=== PATIENT | male | born 1940 | race Caucasian/White ===

== ENCOUNTER 2016-08-27 16:55 | Emergency (ER) | payer MEDICARE, OTHER ==
[2016-08-27 17:19] LABS: #Basophils 0.1 thou/uL (0.0-0.2); #Eosinphils 0.1 thou/uL (0.0-0.7); #Lymphocytes 1.1 thou/uL (1.20-3.40); #Monocytes 0.6 thou/uL (0.11-0.59); #Neutrophils 7.2 thou/uL (1.40-6.50); %Basophils 0.6 % (0.0-1.0); %Monocytes 6.7 % (0.0-10.0); Hematocrit 45.4 % (42.0-52.0); Mean Platelet Volume 5.7 fL (7.4-10.4); Red Blood Cell (RBC) Count 4.88 mill/uL (4.70-6.10)
[2016-08-27 17:37] LABS: ALT (SGPT) 11 U/L (0-55); AST (SGOT) 15 U/L (5-34); Alkaline Phosphatase 66 U/L (40-150); Anion Gap 10 mmol/L (10-20); BUN (Urea Nitrogen) 20 mg/dL (8.4-25.7); Bilirubin, Total 0.3 mg/dL (0.2-1.2); CK (CPK) 49 U/L (30-200); Calc. Creatinine Clearance 0 mL/min (70-130); Calcium 8.9 mg/dL (7.8-10.44); Carbon Dioxide 28 mmol/L (23-31); Chloride 101 mmol/L (98-107); Estimated GFR-MDRD 65; Protein, Total 6.8 g/dL (5.8-8.1)
[2016-08-27 17:44] LABS: Troponin I Less than 0.010 ng/mL (< 0.028)
[2016-08-27 20:57] LABS: Troponin I Less than 0.010 ng/mL (< 0.028)
--- NOTE | 2016-08-27 21:28 | PICIS ---
[facility] EMERGENCY RECORD TRIAGE (TueAug 27, 2016 16:58 ERUI) TRIAGE NOTES: BROUGHT BY EMS FROM DAUGHTERS HOUSE, PER PT HAD A SYNCOPAL EPISODE, AND HAD WHEN FOR EMS. (TueAug 27, 2016 16:58 ERUI) PATIENT: AGE: 76, GENDER: male, : Sat 1940, TIME OF GREET: TueAug 27, 2016 16:56, PREFERRED LANGUAGE: Armenian, ETHNICITY: Not or , ECODE BILLING MAP: [facility] ER, KG WEIGHT: 86.18, , , PERSON ID: [id number], PCP: OUT STATE. (TueAug 27, 2016 16:58 ERUI) NAME: Avi Álvarez, Zip Code: [address], PHONE: , PAYMENT: [place]. (17:42) COMPLAINT: Syncope. (TueAug 27, 2016 16:58 ERUI) ADMISSION: URGENCY: 2 Emergent, ADMISSION SOURCE: Home, TRANSPORT: AMBULANCE - [facility], BED: TRIAGE. (TueAug 27, 2016 16:58 ERUI) ASSESSMENT: Assessment: PT A/OX4, NO COMPLAINTS, NO CP NO SOB. PER PT WAS OUTSIDE, CAME IN BECAME PALE DIAPHORETIC, AND HAD A NEAR SYNCOPAL EPISODE, PER EMS WHEN THEY PICKED HIM UP, HE HAD A SYNCOPAL EPISODE, LASTED ABOUT 3 SEC, PER EMS, PT HAD A BLANK STARE AND RIGHT ARM STARTED TO SHAKE, AND THEN HAD A SYNCOPAL EPISODE. (16:59 ERUI) PAIN: No complaint of pain. (16:58 ERUI) SIRS SCORING: Heart Rate 55-109 (0), Temp range 96.8-101.1 (0), respiratory rate 12-24 (0), Mental Status altered: no (0). (17:15 ERUI) TRIAGE SCREENING: Patient denies suicidal ideation, Patient denies presence of domestic violence. (17:15 ERUI) TREATMENTS IN PROGRESS: Treatments given Prehospital: NONE. (17:15 ERUI) PROVIDERS: TRIAGE NURSE: Charisse Lyle RN. (TueAug 27, 2016 16:58 ERUI) KNOWN ALLERGIES Shellfish CURRENT MEDICATIONS busPIRone: TABLET : Strength - 10 mg : ORAL Patient Dose: 1 tab(s) Oral. (17:02 ERUI) lisinopril: TABLET : Strength - 10 mg : ORAL Patient Dose: 1 tab(s) Oral once a day. (17:03 ERUI) lovastatin: TABLET : Strength - 20 mg : ORAL Patient Dose: 1 tab(s) Oral once a day. (17:03 ERUI) tamsulosin: CAPSULE, EXT RELEASE 24 HR : Strength - 0.4 mg : ORAL Patient Dose: 1 tab(s) Oral once a day. (17:04 ERUI) sertraline: &a-1R&a+25V*p+0X*t1550L*c202B*c15G*c2P*p-0X&a-25V&a+1R Name: Avi Álvarez : 1940 M76 MedRec: [id number] AcctNum: [id number] Prepared: Rc Aug 31, 2016 09:21 by Interface Page 1 of 12 pMD [facility] EMERGENCY RECORD TABLET : Strength - 100 mg : ORAL Patient Dose: 1 tab(s) Oral once a day. (17:04 ERUI) allopurinol: TABLET : Strength - 300 mg : ORAL Patient Dose: 1 tab(s) Oral once a day. (17:05 ERUI) aspirin: TABLET : Strength - 81 mg : ORAL Patient Dose: 1 tab(s) Oral once a day. (17:05 ERUI) hydrOXYzine pamoate: CAPSULE : Strength - 25 mg : ORAL Patient Dose: 1 tab(s) Oral 2 times a day. (17:09 ERUI) VITAL SIGNS VITAL SIGNS: BP: 102/57, Pulse: 64, Resp: 20 (Non-Labored), Pain: 0, O2 sat: 97 on Room Air, Time: 08/27/2016 17:00. (17:00 LGIB) Temp: 97.8 (Oral), Time: 08/27/2016 17:10. (17:10 LGIB) BP: 96/40, Pulse: 60, Resp: 20, Pain: 0, O2 sat: 97 on Room Air, Time: 08/27/2016 17:21. (17:21 ERUI) BP: 104/41, Pulse: 63, Resp: 20, Pain: 0, O2 sat: 96 on Room Air, Time: 08/27/2016 18:15. (18:15 ERUI) BP: 105/46, Pulse: 66, Resp: 22, Pain: 0, O2 sat: 95 on ra, Time: 08/27/2016 19:03. (19:03 BMAD) BP: 116/47, Pulse: 70, Resp: 20, Pain: 0, O2 sat: 97 on Room Air, Time: 08/27/2016 20:09. (20:09 BMAD) NURSING ASSESSMENT: FALL RISK (17:20 ERUI) FALL RISK: Fall risk assessment findings include: no history of falls (0), No bed rest greater than 2 days (0), No use of level of consciousness altering agents with mentation or cognitive changes (0), Change in blood pressure (1), No sensory deficits (0), No impaired mobility (0), No neurologic diagnosis (0), No elimination problems (0), No confusion (0), Total score 1, Notes: PT DID HAVE A SYNCOPAL EPISODE X 2 PRIOR TO ARRIVAL. HENDRICH II FALL RISK: Hendrich II Fall Risk assessment findings include patient not confused, disoriented or impulsive, not symptomatic or depressed, no altered elimination, no dizziness or vertigo, male(1), no antiepileptics (anticonvulsants) administered, no Benzodiazepines administered, Total score 1. NURSING ASSESSMENT: NEURO (17:06 ERUI) GCS: (6) Obeying command:, (5) Orientated:, (4) Spontaneous eye opening. NIHSS: CVA assessment findings: Level of consciousness: alert, keenly responsive (0), Questions: answers both questions correctly (0), Commands: performs both tasks correctly (0), Best gaze: normal (0), Visual: no visual loss (0), Facial palsy: normal symmetrical movement (0), Motor Left Arm: no drift, arm stays 90/45 degrees for full 10 seconds (0), Motor Right Arm: no drift, arm stays 90/45 degrees for full 10 seconds (0), Motor left leg: no drift, leg stays at 30 degrees for full five seconds (0), Motor right leg: no drift, &a-1R&a+25V*p+0X*g8869P*c202B*c15G*c2P*p-0X&a-25V&a+1R Name: Avi Álvarez : 1940 M76 MedRec: [id number] AcctNum: [id number] Prepared: TueAug 31, 2016 09:21 by Interface Page 2 of 12 pMD [facility] EMERGENCY RECORD leg stays at 30 degrees for full five seconds (0), Limb ataxia absent (0), Sensory: normal, no sensory loss (0), Best language: no aphasia; normal (0), Dysarthria: normal (0), Extinction and Inattention: normal (0), Total score 0. CONSTITUTIONAL: Patient arrives, via [facility], History obtained from patient, Patient appears comfortable, Patient cooperative, Patient alert, Oriented to person, place and time, Skin warm, Skin dry, Skin normal in color, Patient complains of SNYCOPAL EPISODE X 2. PAIN: Patient rates pain as 0 out of 10. 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 SAFETY: Side rails up, Cart/Stretcher in lowest position, Family at bedside, Call light within reach, Hospital ID band on. NURSING ASSESSMENT: SKIN (17:19 ERUI) SKIN: Skin assessment findings include skin warm, Skin dry, Skin normal in color, Notes: PT HAS A HEALING, SCAB ON THE INSIDE OF HIS LEFT FOREARM, NO OTHER SKIN BREAKDOWN. NURSING PROCEDURE: BEDSIDE TESTING (17:09 LGIB) GLUCOSE: Capillary blood sample, Result (mg/dl) 105. NURSING PROCEDURE: BRADLEY LINEBACKER CREWMEMBER (17:17 ERUI) PATIENT IDENTIFIER: Patient actively involved in identification process, Patient's identity verified by patient stating name. BRADLEY LINEBACKER CREWMEMBER: Cardiac monitoring indicated for complaint of chest pain, Cardiac monitoring indicated for SYNCOPAL EPISODE X 2, Patient placed on security monitor, Heart rate: 64, showing normal sinus rhythm, Patient placed on non-invasive blood pressure monitor, with disposable blood pressure cuff applied, Patient placed on continuous pulse oximetry, Adult/pediatric oxisensor applied. SAFETY: Side rails up, Cart/Stretcher in lowest position, Family at bedside, Call light within reach, Hospital ID band on. NURSING PROCEDURE: DISCHARGE NOTE (21:05 BMAD) DISCHARGE: Patient discharged to home, ambulating without assistance, family driving, accompanied by //partner, Summary of Care printed/ provided, Patient requested and was provided an electronic copy of Discharge Instructions, Transition record given to patient, Discharge instructions given to patient, Simple or moderate discharge teaching performed, by ANURAG CRAFT MD, Above &a-1R&a+25V*p+0X*l5077I*c202B*c15G*c2P*p-0X&a-25V&a+1R Name: Avi Álvarez : 1940 M76 MedRec: [id number] AcctNum: [id number] Prepared: TueAug 31, 2016 09:21 by Interface Page 3 of 12 pMD [facility] EMERGENCY RECORD person(s) verbalized understanding of discharge instructions and follow-up care, Patient discharged by, Dr. CRAFT. BELONGINGS: Belongings and valuables with patient at time of discharge include:, Belongings remain with patient, Valuables remain with patient. NURSING PROCEDURE: EKG CHART (17:01 LGIB) EK lead EKG performed on the left chest, done by CROW ROMERO. FOLLOW-UP: After procedure, EKG for interpretation given to Dr. CRAFT. NURSING PROCEDURE: IV PATIENT IDENITIFIER: Patient actively involved in identification process, Patient's identity verified by patient stating name, Patient's identity verified by patient stating date. (17:27 ERUI) IV SITE 1: IV established, to the left antecubital, using an 18 gauge catheter, Saline lock established, Notes: SALINE BY EMS PRIOR TO ARRIVAL TO ED. (17:27 ERUI) FOLLOW-UP SITE 1: After procedure, no drainage at IV site, After procedure, no swelling at IV site, After procedure, no redness at IV site, IV discontinued, due to patient being discharged, catheter intact, Notes: iv removed. 2x2 applied. wrapped in coban. (21:03 BMAD) SAFETY: Side rails up, Cart/Stretcher in lowest position, Family at bedside, Call light within reach, Hospital ID band on. (17:27 ERUI) NURSING PROCEDURE: NURSE NOTES NURSES NOTES: Notes: RAJNI WITH LAB, AT BEDSIDE DRAWING LABS. (17:15 ERUI) Notes: PT STATES WAS OUT OF HIS MEDICATIONS FOR OVER A MONTH, AND TODAY HE STARTED HIS MEDICATIONS. (17:16 ERUI) Assistance offered to patient, Ice chips given to patient, Beverage given to patient, Food or beverage offered to family members, Report received, Given to: Anurag MARIA, Provided opportunity to answer questions, from: Margot MARIA, for shift change, Provided opportunity to answer questions. (19:03 BMAD) Notes: Pt ambulating without assistance. pt denying signs/symptoms of orthostatic hypotension. (19:43 BMAD) VITAL SIGNS: BP: 105, / 46, Pulse: 66, Resp: 22, Pain: 0, O2 sat: 95, on: ra. (19:03 BMAD) NURSING PROCEDURE: ORTHOSTATIC VITAL SIGNS (17:31 LGIB) ORTHOSTATIC VITAL SIGNS: Lying:, Blood pressure: 99/40, Pulse: 64, No dizziness, Sitting:, Blood pressure: 97/45, Pulse: 66, No dizziness with position change, Standing:, Blood pressure: 91/36, Pulse: 70, No dizziness with position change. FOLLOW-UP: After procedure, results given to Dr. CRAFT. &a-1R&a+25V*p+0X*n9158Z*c202B*c15G*c2P*p-0X&a-25V&a+1R Name: Avi Álvarez Henry : 1940 M76 MedRec: [id number] AcctNum: [id number] Prepared: TueAug 31, 2016 09:21 by Interface Page 4 of 12 pMD [facility] EMERGENCY RECORD ORDER DETAILS Order Name: BLOOD GLUCOSE MONITOR, Status: Done, Time: 17:09 08/27/2016, User: LGIB, - Ordered for: DO Craft Matthew, - Entered by: DO Craft Matthew - TueAug 27, 2016 16:59, - Quantity: 1, Order Name: BRADLEY LINEBACKER CREWMEMBER ED, Status: Done, Time: 17:12 08/27/2016, User: LGIB, - Ordered for: Venancio, , Ok, - Entered by: DO Craft Matthew - TueAug 27, 2016 16:59, - Quantity: 1, Order Name: Cardiac Profile w/CKMB & Troponin - I, Status: Active, Time: 16:59 08/27/2016, User: MBRI, - Ordered for: DO Craft Matthew, - Entered by: DO Craft Matthew - TueAug 27, 2016 16:59, - Quantity: 1, Order Name: CBC with Differential, Status: Active, Time: 16:59 08/27/2016, User: MBRI, - Ordered for: DO Craft Matthew, - Entered by: DO Craft Matthew - TueAug 27, 2016 16:59, - Quantity: 1, Order Name: CK (CPK), Status: Active, Time: 16:59 08/27/2016, User: MBRI, - Ordered for: DO Craft Matthew, - Entered by: DO Craft Matthew - TueAug 27, 2016 16:59, - Quantity: 1, Order Name: Comprehensive Metabolic Panel, Status: Active, Time: 16:59 08/27/2016, User: MBRI, - Ordered for: DO Craft Matthew, - Entered by: DO Craft Matthew - TueAug 27, 2016 16:59, - Quantity: 1, Order Name: EKG 12 Lead in Emergency Room, Status: Active, Time: 16:59 08/27/2016, User: MBRI, - Ordered for: DO Craft Matthew, - Entered by: DO Craft Matthew - TueAug 27, 2016 16:59, - Quantity: 1, Order Name: ERRT Pulse Oximeter ER, Status: Active, Time: 16:59 08/27/2016, User: MBRI, - Ordered for: DO Craft Matthew, - Entered by: DO Craft Matthew - TueAug 27, 2016 16:59, - Quantity: 1, Order Name: ORTHOSTATIC VITAL SIGNS, Status: Done, Time: 17:31 08/27/2016, User: LEONEL, - Ordered for: DO Craft Matthew, - Entered by: DO Craft Matthew - TueAug 27, 2016 17:24, - Quantity: 1, Order Name: SALINE LOCK, Status: Done, Time: 17:12 08/27/2016, User: LEONEL, - Ordered for: DO Craft Matthew, &a-1R&a+25V*p+0X*u6668I*c202B*c15G*c2P*p-0X&a-25V&a+1R Name: Avi Álvarez : 1940 M76 MedRec: [id number] AcctNum: [id number] Prepared: TueAug 31, 2016 09:21 by Interface Page 5 of 12 D [facility] EMERGENCY RECORD - Entered by: DO Craft Matthew - TueAug 27, 2016 16:59, - Quantity: 1, Order Name: Troponin - I, Status: Active, Time: 20:27 08/27/2016, User: SEAN, - Ordered for: DO Craft Matthew, - Entered by: CROW Becker Blake - TueAug 27, 2016 20:27, - Quantity: 1, Order Name: Urinalysis w/ Rflx Microscopic, Status: Active, Time: 16:59 08/27/2016, User: ASHLEY, - Ordered for: DO Craft Matthew, - Entered by: DO Craft Matthew - TueAug 27, 2016 16:59, - Quantity: 1, Order Name: XR Chest 1 View Portable, Status: Active, Time: 18:22 08/27/2016, User: ASHLEY, - Ordered for: DO Craft Matthew, - Entered by: DO Craft Matthew - TueAug 27, 2016 18:22, - Quantity: 1. MEDICATION ADMINISTRATION SUMMARY Drug Name: *sodium chloride 0.9 % intravenous, Dose Ordered: 500 mL, Route: IV Fluid Infusion, Status: Given, Time: 17:54 08/27/2016, Drug Name: *sodium chloride 0.9 % intravenous, Dose Ordered: 500 mL, Route: IV Fluid Infusion, Status: Given, Time: 17:26 08/27/2016, *Additional information available in notes, Detailed record available in Medication Service section. MEDICATION SERVICE sodium chloride 0.9 % intravenous: Order: sodium chloride 0.9 % intravenous (0.9 % sodium chloride) - Dose: 500 mL : IV Fluid Infusion Schedule: Bolus Notes: (Bolus) Ordered by: Ok Craft DO Entered by: Ok Craft DO TueAug 27, 2016 17:23 , Acknowledged by: Charisse Lyle RN TueAug 27, 2016 17:26 Documented as given by: Charisse Lyle RN TueAug 27, 2016 17:26 Patient, Medication, Dose, Route and Time verified prior to administration. Amount given: 500ML, IV SITE #1 IV fluids established for hydration, IV SITE #1 1st bag hung, amount 500ml hung, via primary tubing, via gravity tubing, Awake and alert- acceptable, Catheter placement confirmed via flush prior to administration, IV site without signs or symptoms of infiltration during medication administration, No swelling during administration, No drainage during administration, IV flushed after administration, Correct patient, time, route, dose and medication confirmed prior to administration, Patient advised of actions and side-effects prior to administration, Allergies confirmed and medications reviewed prior to administration, Patient in position of comfort, Side rails up, Cart in lowest position, Family at &a-1R&a+25V*p+0X*h7717U*c202B*c15G*c2P*p-0X&a-25V&a+1R Name: Avi Álvarez : 1940 M76 MedRec: [id number] AcctNum: [id number] Prepared: TueAug 31, 2016 09:21 by Interface Page 6 of 12 pMD [facility] EMERGENCY RECORD bedside. : Follow Up : Response assessment performed, No signs or symptoms of allergic reaction noted, _IV SITE #1:_, Medication infusion discontinued, on TueAug 27, 2016 17:51, 25 minutes, ., Total amount infused: 500ML. (17:50 ERUI) sodium chloride 0.9 % intravenous: Order: sodium chloride 0.9 % intravenous (0.9 % sodium chloride) - Dose: 500 mL : IV Fluid Infusion Schedule: Bolus Notes: (Bolus) Ordered by: Ok Craft DO Entered by: Charisse Lyle RN TueAug 27, 2016 17:53 , Acknowledged by: Charisse Lyle RN TueAug 27, 2016 17:53 Documented as given by: Charisse Lyle RN TueAug 27, 2016 17:54 Patient, Medication, Dose, Route and Time verified prior to administration. Amount given: 500ML/HR, IV SITE #1 IV fluids established for hydration, IV SITE #1 1st bag hung, amount 500ml hung, via primary tubing, via gravity tubing, Awake and alert- acceptable, Catheter placement confirmed via flush prior to administration, IV site without signs or symptoms of infiltration during medication administration, No swelling during administration, No drainage during administration, IV flushed after administration, Correct patient, time, route, dose and medication confirmed prior to administration, Patient advised of actions and side-effects prior to administration, Allergies confirmed and medications reviewed prior to administration, Patient in position of comfort, Side rails up, Cart in lowest position, Family at bedside, Co-signed by: Ok Craft DO TueAug 27, 2016 18:04. : Follow Up : _IV SITE #1:_, IV fluid infusion discontinued, on TueAug 27, 2016 18:30, 40 minutes, ., Total amount infused: 500ml. (18:30 BMAD) HPI SYNCOPE (17:55 MBRI) CHIEF COMPLAINT: Patient presents for evaluation of syncope. HISTORIAN: History provided by patient, History provided by patient's family, Additional history obtained from EMS. LOCATION: Symptoms are generalized. QUALITY: Symptom quality described as blackout, Denies lightheadedness, Denies vertigo, Denies dizziness, Unable to describe the quality of the pain. SEVERITY: Maximum severity of symptoms mild, Currently symptoms are mild. TIME COURSE: Sudden onset of symptoms, Symptoms have resolved, Symptoms are intermittent, Pt was sitting in his garage when he got up and walked a short distance to the kitchen. He sat down and then passed out for a brief episode <30 sec and recovered spontaneously without residual effects. EMS was called and he had another episode in the ambulance that last again a short duration with immediate recovery. He was on the monitor and no &a-1R&a+25V*p+0X*q1287C*c202B*c15G*c2P*p-0X&a-25V&a+1R Name: Avi Álvarez : 1940 M76 MedRec: [id number] AcctNum: [id number] Prepared: TueAug 31, 2016 09:21 by Interface Page 7 of 12 pMD [facility] EMERGENCY RECORD arrhythmia noted. He did have low blood pressure and bradycardia during this spell but that improved by his ED arrival. He noted that today he took all of his medications around 11am, none of which he had taken in over a month. Of noted this includes Tamsulosin and Lisinopril along with Zoloft and Buspirone. ASSOCIATED WITH: No associated abdominal pain, No associated back pain, No associated change in speech, No associated chest pain, No associated diarrhea, No associated diaphoresis, No associated fall, No associated focal deficit, No associated GI Bleed, Associated with headache, currently resolved, No associated pleuritic chest pain, No associated recent surgery, Associated with taoism of normal mental status, immediate, No associated shortness of breath, No associated seizures, No associated tachycardia, No associated vomiting. EXACERBATED BY: Patient's condition exacerbated by nothing. RELIEVED BY: Patient's condition relieved by rest, Patient's condition relieved spontaneously, Patient's condition relieved by time. RISK FACTORS MALE: Abdominal aortic aneurysm risk factors, include age over 40 years, No subarachnoid hemorrhage risk factors, Thoracic aortic dissection risk factors, include hypertension, Coronary artery disease risk factors, include high cholesterol, include hypertension, No pulmonary embolism risk factors. WELLS CRITERIA FOR PE: No clinical signs and symptoms of a DVT (0), Patient does not have, or is likely to not have, a primary diagnosis of PE (0), Patient's heart rate is less than 100 (0), Patient has no history of immobilization within 3 days, nor any surgical history within the past 4 weeks (0), Patient has not had an objectively diagnosed PE or DVT previously (0), Patient does not have hemoptysis (0), Patient has not had treatment for malignancy within the last 6 months, nor palliative (0), Total 0. ROS CONSTITUTIONAL: Negative constitutional review of systems, Historian denies chills, denies fever. (17:45 MBRI) EYES: Negative eye review of systems. (17:45 MBRI) ENT: Historian denies rhinorrhea, denies sore throat. (17:45 MBRI) CARDIOVASCULAR: Historian denies chest pain, no radiation, Historian denies dyspnea on exertion, denies edema, denies orthopnea, denies paroxysmal nocturnal dyspnea, reports syncope, denies palpitations. (17:45 MBRI) RESPIRATORY: Historian denies cough, denies shortness of breath. (17:45 MBRI) GI: Negative gastrointestinal review of systems, Historian denies abdominal pain, denies diarrhea, denies nausea, denies vomiting. (17:45 MBRI) GENITOURINARY MALE: Negative genitourinary review of systems. (17:45 MBRI) MUSCULOSKELETAL: Historian denies injury, Denies any &a-1R&a+25V*p+0X*v0017C*c202B*c15G*c2P*p-0X&a-25V&a+1R Name: Avi Álvarez : 1940 M76 MedRec: [id number] AcctNum: [id number] Prepared: Rc Aug 31, 2016 09:21 by Interface Page 8 of 12 pMD [facility] EMERGENCY RECORD musculoskeletal pain. (17:45 MBRI) SKIN: Negative skin review of systems, Historian denies skin changes. (17:45 MBRI) NEUROLOGIC: Negative neurologic review of systems, Historian denies focal weakness, denies sensory changes. (17:45 MBRI) HEMO/LYMPHATIC: Normal hematologic/lymphatic system review. (17:46 MBRI) PAST MEDICAL HISTORY (17:15 ERUI) MEDICAL HISTORY: Notes: ENLARGE PROSTATE, INSOMNIA,, Flu vaccine up to date, Tetanus immunization up to date, Pneumococcal vaccine not up to date, Past medical history includes history of hyperlipidemia, history of hypertension, musculoskeletal disorder. gout. MALE SURGICAL HISTORY: KNOTS ON ARMS AND LEGS REMOVED. CATARACTS RAMESH,. PSYCHIATRIC HISTORY: Psychiatric history includes, anxiety, depression. SOCIAL HISTORY: Patient denies alcohol use, Patient denies drug use, Patient currently uses tobacco, smokes cigarettes, daily, Patient smokes 1/2 packs per day. PHYSICAL EXAM (17:45 MBRI) CONSTITUTIONAL: Vital Signs Reviewed, Nursing notes reviewed. HEAD: Head exam included findings of head atraumatic, normocephalic. EYES: Eye exam included findings of eyelids normal to inspection, Pupils equally round and reactive to light, Extraocular muscles intact. ENT: Ear exam normal, Nose exam normal, Pharynx exam normal, not injected. NECK: Neck exam normal, Neck exam included findings of normal range of motion, Trachea midline. RESPIRATORY CHEST: Respiratory exam included findings of no respiratory distress, Breath sounds clear, No wheezing, No rales, No rhonchi. CARDIOVASCULAR: Cardiovascular exam included findings of heart rate regular rate and rhythm, Heart sounds normal, Carotids normal. ABDOMEN MALE: Abdominal exam included findings of abdomen nontender, Bowel sounds normal, no distension, no peritoneal signs, no rigidity, no guarding, no rebound. BACK: Back exam included findings of normal inspection, no tenderness. UPPER EXTREMITY: Upper extremity exam included findings of inspection normal, Range of motion normal, Motor strength normal, Radial pulse normal, no cyanosis, no clubbing, no edema. LOWER EXTREMITY: Lower extremity exam included findings of inspection normal, Range of motion normal, Motor strength normal, Pedal pulse normal, no cyanosis, no clubbing, no edema. &a-1R&a+25V*p+0X*b9327I*c202B*c15G*c2P*p-0X&a-25V&a+1R Name: Avi Álvarez : 1940 M76 MedRec: [id number] AcctNum: [id number] Prepared: TueAug 31, 2016 09:21 by Interface Page 9 of 12 pMD [facility] EMERGENCY RECORD NEURO: [place] coma scale 15, Neuro exam findings include patient oriented to person, place and time, Speech normal, Gait normal, Memory normal, Cranial nerves intact, Deep tendon reflexes normal, no focal motor deficits, no focal sensory deficits, no cerebellar deficits, no nystagmus. SKIN: Skin exam included findings of skin warm, dry, and normal in color. EVENTS TRANSFER: Triage to Emergency Triage. (TueAug 27, 2016 16:58 ERUI) Emergency Triage to Emergency Room -04. (16:58 ERUI) Removed from Emergency Emergency Room -04. (21:15 BMAD) EKG INTERPRETATION (17:47 MBRI) 12 LEAD EKG INTERPRETATION: 12 lead EKG interpreted by Emergency Department Physician at time of study, 12 lead EKG shows normal sinus rhythm, Rate (beats per minute): 63, with no ectopics, Conduction normal, ST segments normal, T waves normal, [place] normal. O2SAT INTERPRETATION (17:44 MBRI) O2SAT: Oxygen saturation interpretation: Normal. PROBLEM LIST No recorded problems DIAGNOSIS (20:59 MBRI) FINAL: PRIMARY: lightheadedness, ADDITIONAL: medication reaction - likely to BP meds and Tamsulosin, SYNCOPE AND COLLAPSE. DISPOSITION PATIENT: Disposition Type: Discharge, Disposition: *Discharge Home, Condition: Improved. (20:59 MBRI) Patient left the department. (21:15 BMAD) INSTRUCTION (21:02 MBRI) DISCHARGE: SYNCOPE, VASOVAGAL, MEDICATION REACTION OTHER. FOLLOWUP: Follow up with Primary Care Physician as soon as possible. SPECIAL: Please return for any further issues or concerns, we would be happy to see you. We hope you feel better soon. Follow-up with your PCP as soon as possible please. Consider changing some of your medications to the morning and some to the evening if you only take them once a day. PRESCRIPTION No recorded prescriptions &a-1R&a+25V*p+0X*[id number]*c202B*c15G*c2P*p-0X&a-25V&a+1R Name: Avi Álvarez : 1940 M76 MedRec: [id number] AcctNum: [id number] Prepared: TueAug 31, 2016 09:21 by Interface Page 10 of 12 pMD [facility] EMERGENCY RECORD IMAGING *EKG: Image captured from scanner. (17:21 LGIB) *DISCHARGE INSTRUCTIONS RECEIPT: Image captured from scanner. (21:17 KSPL) *SUPPLY CHARGE SHEET: Image captured from scanner. (21:17 KSPL) ADMIN (TueAug 31, 2016 09:20 MBRI) DIGITAL SIGNATURE: DO Craft Matthew. RESULTS LABORATORY: Cardiac Profile w/CKMB & TropI Collection DT: TueAug 27, 2016 17:17, CKMB 1.4 ng/mL, Range (0-6.6), Troponin I Less than 0.010 ng/mL, Range (< 0.028), Reference Range , 0.00 - 0.028 ng/mL Negative 0.029 - 0.29 ng/mL , Indeterminate Greater or Equal to 0.3 ng/mL Strongly suggests PA , . (17:47 MBRI) CK (CPK) Collection DT: TueAug 27, 2016 17:17, CK (CPK) 49 U/L, Range (30-200). (17:47 MBRI) Comprehensive Metabolic Panel Collection DT: TueAug 27, 2016 17:17, *Sodium 135 - L mmol/L, Range (136-145), Potassium 4.4 mmol/L, Range (3.5-5.1), Chloride 101 mmol/L, Range (98-107), Carbon Dioxide 28 mmol/L, Range (23-31), Anion Gap 10 mmol/L, Range (10-20), BUN (Urea Nitrogen) 20 mg/dL, Range (8.4-25.7), Creatinine 1.10 mg/dL, Range (0.7-1.3), Estimated GFR-MDRD 65 , Reference Range for Estimated GFR: Greater than 90, mL/min/1.73 m2 NOTE: The MDRD equation has not been validated for use, with the elderly (over 70 years of age), women, patients with, serious comorbid condition or persons with extremes of body size, muscle, mass, or nutritional status. , *Glucose 112 - H mg/dL, Range (83-110), Calcium 8.9 mg/dL, Range (7.8-10.44), Bilirubin, Total 0.3 mg/dL, Range (0.2-1.2), Protein, Total 6.8 g/dL, Range (5.8-8.1), NOTE: Plasma values are generally 0.3 to 0.5 g/dL higher than serum values, due to the presence of fibrinogen. , Albumin 3.8 g/dL, Range (3.4-4.8), Globulin 3.0 g/dL, Range (2.4-3.5), Alb/Glob Ratio 1.3 g/dL, Range (1.2-2.2), Alkaline Phosphatase 66 U/L, Range (40-150), AST (SGOT) 15 U/L, Range (5-34), &a-1R&a+25V*p+0X*d2088K*c202B*c15G*c2P*p-0X&a-25V&a+1R Name: Avi Álvarez : 1940 M76 MedRec: [id number] AcctNum: [id number] Prepared: TueAug 31, 2016 09:21 by Interface Page 11 of 12 pMD [facility] EMERGENCY RECORD ALT (SGPT) 11 U/L, Range (0-55). (17:47 MBRI) Accuchek Collection DT: TueAug 27, 2016 17:24, Accuchek 105 mg/dL, Range (70-110). (17:47 MBRI) CBC with Differential Collection DT: TueAug 27, 2016 17:17, White Blood Cell (WBC) Count 9.0 thou/uL, Range (4.8-10.8), Red Blood Cell (RBC) Count 4.88 mill/uL, Range (4.70-6.10), Hemoglobin 14.8 g/dL, Range (14.0-18.0), Hematocrit 45.4 %, Range (42.0-52.0), Mean Corpuscular Volume 93.0 fl, Range (80.0-94.0), Mean Corpuscular Hemoglobin 30.4 pg, Range (27.0-31.0), Mean Corpuscular HGB CONC 32.6 g/dL, Range (32.0-36.0), RBC Distribution Width 12.1 %, Range (11.5-14.5), Platelet Count 248 thou/uL, Range (130-400), *Mean Platelet Volume 5.7 - L fL, Range (7.4-10.4), *%Neutrophils 79.7 - H %, Range (42.0-75.0), *%Lymphocytes 12.1 - L %, Range (21.0-51.0), %Monocytes 6.7 %, Range (0.0-10.0), %Eosinophils 1.0 %, Range (0.0-10.0), %Basophils 0.6 %, Range (0.0-1.0), *#Neutrophils 7.2 - H thou/uL, Range (1.40-6.50), *#Lymphocytes 1.1 - L thou/uL, Range (1.20-3.40), *#Monocytes 0.6 - H thou/uL, Range (0.11-0.59), #Eosinphils 0.1 thou/uL, Range (0.0-0.7), #Basophils 0.1 thou/uL, Range (0.0-0.2). (17:47 MBRI) Troponin - I Collection DT: TueAug 27, 2016 20:46, Troponin I Less than 0.010 ng/mL, Range (< 0.028), Reference Range , 0.00 - 0.028 ng/mL Negative 0.029 - 0.29 ng/mL , Indeterminate Greater or Equal to 0.3 ng/mL Strongly suggests PA , . (20:58 MBRI) Ponce: BMJUDY=CROW Becker, Anurag ERUI=CROW Lyle Emilia KSPL=CROW Javed, Francesca LGIB=CROW Kramer, Jess MBRI=DO Craft Matthew &a-1R&a+25V*p+0X*c9977U*c202B*c15G*c2P*p-0X&a-25V&a+1R Name: Avi Álvarez : 1940 M76 MedRec: [id number] AcctNum: [id number] Prepared: TueAug 31, 2016 09:21 by Interface Page 12 of 12 pMD [facility] MEDICATION RECONCILIATION You were seen in the Emergency Department on: TueAug 27, 2016 KNOWN ALLERGIES Shellfish MEDICATIONS GIVEN WHILE IN THE EMERGENCY DEPARTMENT sodium chloride 0.9 % intravenous (0.9 % sodium chloride) - Dose: 500 milliliter(s) : IV Fluid Infusion sodium chloride 0.9 % intravenous (0.9 % sodium chloride) - Dose: 500 milliliter(s) : IV Fluid Infusion HOME MEDICATIONS CONTINUE PRESCRIBED allopurinol : TABLET : Strength - 300 mg : ORAL Continue as prescribed Patient had been takin tab(s) Oral once a day. aspirin : TABLET : Strength - 81 mg : ORAL Continue as prescribed Patient had been takin tab(s) Oral once a day. busPIRone : TABLET : Strength - 10 mg : ORAL Continue as prescribed Patient had been takin tab(s) Oral. hydrOXYzine pamoate : CAPSULE : Strength - 25 mg : ORAL Continue as prescribed Patient had been takin tab(s) Oral 2 times a day. lisinopril : TABLET : Strength - 10 mg : ORAL Continue as prescribed Patient had been takin tab(s) Oral once a day. lovastatin : TABLET : Strength - 20 mg : ORAL Continue as prescribed Patient had been takin tab(s) Oral once a day. sertraline : TABLET : Strength - 100 mg : ORAL Continue as prescribed Patient had been takin tab(s) Oral once a day. tamsulosin : CAPSULE, EXT RELEASE 24 HR : Strength - 0.4 mg : ORAL Continue as prescribed Patient had been takin tab(s) Oral once a day. &a-1R&a+25V*p+0X*i6732P*c202B*c15G*c2P*p-0X&a-25V&a+1R Name: Avi Álvarze Henry : 1940 M76 MedRec: [id number] AcctNum: [id number] Prepared: TueAug 31, 2016 09:21 by Interface pMD [facility] MEDICATION RECONCILIATION Notes from the emergency department Reviewed with family Reviewed with patient &a-1R&a+25V*p+0X*i9488Y*c202B*c15G*c2P*p-0X&a-25V&a+1R Name: Lucy Álvarezsimón Figueroa : 1940 M76 MedRec: [id number] AcctNum: [id number] Prepared: Rc Aug 31, 2016 09:21 by Interface Mikel GEE
--- NOTE | 2016-08-27 22:18 | RAD ---
PORTABLE CHEST 08/27/16 An AP portable film at 1821 shows a normal sized heart. There is no vascular congestion or edema. No major lobar infiltrate was seen. There is a little haziness in the right cardiophrenic angle, but t his could be due to overlapping structures and technique. The trachea is midline. IMPRESSION: No definite acute findings. POS: HOME
== END 2016-08-27 21:08 | disposition home or self-care (01) ==
LOC: BURERS 16:55
DX: R55 Syncope and collapse (principal); T50.905A Adverse effect of unspecified drugs, medicaments and biological substances, initial encounter; E78.5 Hyperlipidemia, unspecified; I10 Essential (primary) hypertension; F32.9 Major depressive disorder, single episode, unspecified; F41.9 Anxiety disorder, unspecified; F17.210 Nicotine dependence, cigarettes, uncomplicated
CPT/HCPCS: 36415; 36416; 71010; 80053; 82550; 82553; 84484; 85025; 93005; 94760; 96360